=== PATIENT | male | born 1945 | race American Indian/Alaskan Native ===

== ENCOUNTER 2018-06-24 11:02 | Emergency (ER) | payer MEDICARE, MEDICAID ==
[2018-06-24 11:02] VITALS: BMI 34.0
[2018-06-24 12:22] LABS: BASO # 0.1 K/uL (0.0-0.2); BASO % 0.5 % (0.0-2.0); EOS % 0.1 % (0.0-4.0); HEMOGLOBIN 16.1 g/dL (12.0-18.0); LYMPH # 2.2 K/uL (1.0-4.3); LYMPH % 17.6 % (20.0-40.0); MEAN CELL VOLUME 89.2 fL (80.0-94.0); MEAN CORPUSCULAR HEMOGLOBIN 30.3 pg (27.0-31.0); MONO # 0.9 K/uL (0.0-0.8); MONO % 7.6 % (0.0-10.0); NEUT # 9.1 K/uL (1.8-7.0); NEUT % 74.2 % (50.0-75.0); RBC 5.32 Mil/uL (4.40-5.90); RED CELL DISTRIBUTION WIDTH 13.7 % (11.5-14.5); WHITE BLOOD COUNT 12.2 K/uL (4.8-10.8)
--- NOTE | 2018-06-24 12:32 | C.PDOC ---
History Of Present Illness 73 year old male is brought to the ED by EMS for evaluation after patient reportedly had an unwitnessed fall at shelter earlier today. Patient has history dementia and is unable to provide any reliable information about the incident. Patient presents with no obvious injuries. Additional history limited secondary to patient's history of dementia. Time Seen by Provider: 06/24/18 11:37 Chief Complaint (Nursing): Lower Extremity Problem/Injury History Per: Patient, EMS History/Exam Limitations: other (dementia ) Onset/Duration Of Symptoms: Hrs Current Symptoms Are (Timing): Still Present Additional History Per: Patient, EMS, [facility] Past Medical History Reviewed: Historical Data, Nursing Documentation, Vital Signs Vital Signs: Last Vital Signs Temp 97.6 F 06/24/18 15:15 Pulse 60 06/24/18 15:15 Resp 16 06/24/18 15:15 BP 107/50 L 06/24/18 15:15 Pulse Ox 100 06/24/18 17:44 - Medical History PMH: Alzheimer's Disease, Arthritis, COPD, Dementia, Depression, HTN, Parkinson' s Disease, Rheumatoid Arthritis Denies: Chronic Kidney Disease - [facility] Procedures DRAINAGE OF L PLEURAL CAV WITH DRAIN DEV, PERC APPROACH (01/03/16) EXCISION OF LEFT UPPER LUNG LOBE, PERC APPROACH, DIAGN (01/03/16) Family History: States: Unknown Family Hx - Social History Hx Alcohol Use: No Hx Substance Use: No - Immunization History Hx Tetanus Toxoid Vaccination: No Hx Influenza Vaccination: No Hx Pneumococcal Vaccination: No Review Of Systems Review Of Systems: ROS cannot be obtained secondary to pt's inabilty to answer questions. Physical Exam - Physical Exam Appears: Non-toxic, No Acute Distress Skin: Normal Color, Warm, Dry Head: Atraumatic, Normacephalic Eye(s): bilateral: Normal Inspection Oral Mucosa: Moist Neck: Normal ROM, Supple Chest: Symmetrical, No Deformity, No Tenderness Cardiovascular: Rhythm Regular, No Murmur Respiratory: Normal Breath Sounds, No Rales, No Rhonchi, No Wheezing Gastrointestinal/Abdominal: Soft, No Tenderness, No Guarding, No Rebound Extremity: Normal ROM, Capillary Refill (less than 2 seconds ) Neurological/Psych: Other (awake and alert ) ED Course And Treatment - Laboratory Results Result Diagrams: 06/24/18 12:12 06/24/18 12:12 ECG: Interpreted By Me, Viewed By Me ECG Rhythm: Sinus Rhythm ECG Interpretation: No Changes From Prior (01/07/2016) Interpretation Of ECG: Sinus Rhythm at rate 68bpm. Left axis deviation. left bundle branch block. nonspecific ST/T wave changes. Rate From EC O2 Sat by Pulse Oximetry: 100 (on RA) Pulse Ox Interpretation: Normal Medical Decision Making Medical Decision Making: patient repeat bp 110/60 patient is non ambulatory and is bed ridden no gross physical findings on exam discussed with Dr. Galeas and will send back to shelter. patient voiced no complaints during evaluation. Disposition Discussed With .: Chris Galeas Doctor Will See Patient In The: Office Counseled Patient/Family Regarding: Studies Performed, Diagnosis, Need For Followup - Disposition Referrals: Chris Galeas MD [Staff Provider] - Disposition: HOME/ ROUTINE Disposition Time: 14:36 Condition: STABLE Additional Instructions: follow up with your doctor in 2 days call to make an appointment continue shelter medications return to ER if symptoms worsens or progress Instructions: Preventing Falls Forms: [facility] (Liberian), General Discharge Instructions - Clinical Impression Clinical Impression: Falls frequently - Scribe Statement The provider has reviewed the documentation as recorded by the Scribe (Rut Wright) Provider Attestation: All medical record entries made by the Scribe were at my direction and personally dictated by me. I have reviewed the chart and agree that the record accurately reflects my personal performance of the history, physical exam, medical decision making, and the department course for this patient. I have also personally directed, reviewed, and agree with the discharge instructions and disposition.
[2018-06-24 12:38] LABS: ALB/GLOB RATIO 1.5 (1.0-2.1); ALBUMIN 4.6 g/dL (3.5-5.0); ALT/SGPT 26 U/L (21-72); AST/SGOT 34 U/L (17-59); BLOOD UREA NITROGEN 15 mg/dL (9-20); CALCIUM 9.7 mg/dl (8.6-10.4); GFR AFRICAN-AMERICAN > 60; GFR NON-AFRICAN AMERICAN > 60
--- NOTE | 2018-06-24 12:41 | RAD ---
Date of service: 06/24/2018 PROCEDURE: CHEST RADIOGRAPH, 1 VIEW HISTORY: SOB COMPARISON: 01/09/2016 FINDINGS: LUNGS: The lungs are well inflated. The right lung is clear. There is interval mild increase in size of known well-circumscribed ovoid smoothly marginated left parahilar mass. PLEURA: No pneumothorax or pleural fluid seen. CARDIOVASCULAR: Normal. OSSEOUS STRUCTURES: No significant abnormalities. VISUALIZED UPPER ABDOMEN: Normal. OTHER FINDINGS: None. IMPRESSION: No active pulmonary disease. Interval increase in size of 3.9 x 6.0 cm known well-circumscribed smoothly marginated ovoid left parahilar mass.
[2018-06-24 12:48] LABS: B-TYPE NATRIURETIC PEPTIDE 62.1 pg/mL (0-900)
--- NOTE | 2018-06-24 12:49 | CT ---
Date of service: 06/24/2018 PROCEDURE: CT HEAD WITHOUT CONTRAST. HISTORY: dizziness COMPARISON: None available. TECHNIQUE: Axial computed tomography images were obtained through the head/brain without intravenous contrast. Radiation dose: Total exam DLP = 984.4 mGy-cm. This CT exam was performed using one or more of the following dose reduction techniques: Automated exposure control, adjustment of the mA and/or kV according to patient size, and/or use of iterative reconstruction technique. FINDINGS: HEMORRHAGE: No intracranial hemorrhage. BRAIN: No mass effect or edema. Atrophy. Chronic microvascular ischemic changes. Bilateral basal ganglia lacunar infarctions. VENTRICLES: Prominence of the ventricles in excess of cerebral atrophy. No hydrocephalus. CALVARIUM: Unremarkable. PARANASAL SINUSES: Right maxillary sinus mucosal thickening. MASTOID AIR CELLS: Unremarkable as visualized. No inflammatory changes. OTHER FINDINGS: Questionable prominent soft tissue within the sella turcica. IMPRESSION: No acute intracranial pathology. Cerebral atrophy with chronic microvascular ischemic changes. Prominence of the ventricles in excess of cerebral atrophy can be seen with communicating hydrocephalus. Question prominent soft tissue within the sella turcica.
[2018-06-24 13:32] LABS: SQUAMOUS EPITHIAL < 1 /hpf (0-5); URINE BILIRUBIN NEGATIVE (NEGATIVE); URINE BLOOD NEGATIVE (NEGATIVE); URINE CLARITY Hazy (Clear); URINE COLOR Yellow (YELLOW); URINE GLUCOSE (UA) NORMAL (Normal); URINE LEUKOCYTE ESTERASE TRACE Leu/uL (Negative); URINE PROTEIN NEGATIVE (NEGATIVE)
[2018-06-24 18:02] VITALS: PULSE 64
[2018-06-24 20:16] VITALS: BP 100/60; RESP 20; TEMP 97.8; O2SAT 98
--- NOTE | 2018-06-24 20:45 | CARD ---
APPROVED REPORT Date of service: 06/24/2018 EKG Measurement Heart [id number] <Conclusion> Normal sinus rhythm Left axis deviation Left bundle branch block Abnormal ECG
== END 2018-06-24 20:16 | disposition home or self-care (01) ==
LOC: C.ER 11:02
DX: Z04.3 Encounter for examination and observation following other accident (principal)